=== PATIENT | female | born 1975 | race Caucasian/White ===

== ENCOUNTER → 2019-12-12 16:00 | Outpatient (BNVA) | payer BC, OTHER, SELFPAY | PROVIDERS: Family Provider Family Medicine; Visit Provider Nurse Practitioner Women's Health | DX: N93.9 Abnormal uterine and vaginal bleeding, unspecified (principal) | CPT/HCPCS: 84146; 84439; 84443; 84702; 85025 ==

== ENCOUNTER → 2019-12-13 13:09 | Outpatient (BNVA) | payer BC, OTHER, SELFPAY | PROVIDERS: Family Provider Family Medicine; Visit Provider Nurse Practitioner Women's Health | DX: N93.9 Abnormal uterine and vaginal bleeding, unspecified (principal) | CPT/HCPCS: 76830; 88305 ==

== ENCOUNTER 2020-06-20 18:52 | Emergency (ER) | payer BC, OTHER, SELFPAY ==
[2020-06-20 19:33] VITALS: BP 152/88; PULSE 90; RESP 18; TEMP 37.2; O2SAT 96; BMI 41.1
--- NOTE | 2020-06-20 19:53 | ED_ITS ---
HPI - Abdominal Pain General: Chief Complaint: Nausea/Vomiting/Diarrhea Stated Complaint: heartburn x3 days Time Seen by Provider: 06/20/20 19:52 Source: patient Mode of arrival: ambulatory Limitations: no limitations History of Present Illness: HPI narrative: 44-year-old female comes in today with complaints of worsening heartburn for the last 3 days. Patient routinely uses Pepcid 20 mg twice a day without much relief. Patient has also added some Pepto-Bismol which has added minimal relief. Patient does have a history of an ulcer. Patient states noticing a small amount of blood in her emesis this morning. Patient denies any changes in her bowels except for due to the Pepto- Bismol which has changed in nature but to black. She reports that when she is does not take the Pepto-Bismol it returns to normal color. Patient comes in just to make sure that it is not her heart. Patient appears well. Patient appears no acute distress. MD elicited complaint: abdominal pain Pertinent past history: gastritis (ulcer) Onset (ago): day(s) Pain Consistency: intermittent Location: Epigastric Quality: sharp Review of Systems General: Reports: 10 or more systems reviewed and unremarkable except in HPI and below GI: Reports: abdominal pain PFSH ED PFSH: Medical History (Updated 06/20/20 @ 21:08 by YUE Montiel) No pertinent past medical history neghx: htn,dm,thyroid,dvt/pe PCOS (polycystic ovarian syndrome) Surgical History Hx of section 2000 2011 Family History Grandmother Colon cancer, Onset Age: 70 Maternal Heart disease Maternal Father Diabetes Heart disease Hypertension Mother Diabetes Hypertension Brother Hypertension Denies family history of Ovarian cancer Clotting disorder Hypercholesteremia Breast cancer Bleeding disorder Uterine cancer Thyroid disease Stroke Social History Additional social history: - Tobacco use: smokes 0.25 pack per day Alcohol use: Never Drug use: Never Physical Exam Const: COMMON NORMALS: no acute distress and patient oriented x3 GENERAL A PPEARANCE: cooperative HENMT: COMMON NORMALS: normocephalic and Normal external nose present HEAD & SCALP: normal to inspection and normocephalic NOSE: Normal external nose present MOUTH: Normal oral and palatal mucosa present THROAT: posterior oropharynx normal Eye: GENERAL EYE: appearance normal, both eyes and all related structures Neck/C-Spine: COMMON NORMALS: full ROM Lymph: LYMPHATIC: no lymphadenopathy noted Chest: COMMONS NORMALS: normal inspection of the chest Resp: COMMON NORMALS: normal respiratory effort EFFORT & INSPECTION: Yes able to speak in complete sentences Cardio: COMMON NORMALS: regular rate and regular rhythm RATE: regular rate RHYTHM: regular rhythm GI: AUSCULTATION: Yes normoactive bowel sounds PALPATION: Yes Tenderness to palpation present (GI) (epigastric) PERCUSSION: normal to percussion : COMMON NORMALS: Yes no CVA tenderness BLADDER/KIDNEY EXAM: Yes no CVA tenderness Back/Pelvis: COMMON NORMALS: no CVA tenderness and thoracic and lumbar spine normal to inspection Extremity: COMMON NORMALS: normal to inspection Neuro: COMMON NORMALS: patient oriented x3 and moves all extremities Psych: COMMON NORMALS: mental status grossly normal and cooperative Skin: COMMON NORMALS: no rashes or lesions noted GENERAL SKIN EXAM: no rashes or lesions noted Course Vital Signs: Vital signs: Vital Signs Temperature 99.0 F 06/20/20 19:33 Pulse Rate 90 06/20/20 19:33 Respiratory Rate 18 06/20/20 19:33 Blood Pressure 152/88 06/20/20 19:33 Pulse Oximetry 96 06/20/20 19:33 MDM - Abdominal Pain MDM Narrative: Medical decision making narrative: Patient comes in today with complaints of epigastric abdominal pain. Patient reports exacerbation of symptoms for the last 3-4 days. Patient has been using famotidine and Pepto- Bismol with minimal to no relief. On exam patient has some mid epigastric tenderness. Respirations were even lungs were clear to auscultation. Vital signs were normal. Differential diagnosis includes but not limited to hiatal hernia, GERD, gastritis, ACS. EKG was unremarkable. CBC noted some mild anemia and mild leukocytosis. CMP was unremarkable. Troponin and lipase were normal. Patient was medicated with a GI cocktail and 40 mg of pantoprazole IV. Patient had significant improvement in symptoms. I believe patient probably has gastritis and will benefit from Protonix for the next 2 weeks. Patient was written for Protonix with recommendations for follow-up with primary care in 2 weeks. Patient reported understanding of care plan and need for follow-up or return to the ER. Lab Data: Labs: Lab Results 06/20/20 06/20/20 06/20/20 Range/Units 20:27 20:27 20:27 WBC 11.0 H (4.0-10.0) 10^3/ uL RBC 5.12 (4.1-5.3) 10^6/u L Hgb 11.3 L (11.5-15.3) g/dL Hct 36.8 L (37.0-47.0) % MCV 71.9 L (81-99) fL MCH 22.1 L (28.0-34.0) pg MCHC 30.7 (30.0-36.0) g/dL RDW 18.0 H (12.1-15.1) % Plt Count 328 (130-400) 10^3/c mm MPV 10.1 (7.4-10.4) fL Neut % (Auto) 72.7 % Lymph % (Auto) 19.1 % [place] % (Auto) 5.5 % Eos % (Auto) 2.1 % Baso % (Auto) 0.3 % Neut # (Auto) 8.01 H (1.8-7.7) 10^3/u L Lymph # (Auto) 2.1 (0.8-4.8) 10^3/u L [place] # (Auto) 0.6 (0.2-0.9) 10^3/u L Eos # (Auto) 0.2 (0.0-0.8) 10^3/u L Baso # (Auto) 0.0 (0.0-0.1) 10^3/u L Nucleated RBC % (a uto) 0 % Nucleated RBCs # 0.0 /100WBC Sodium 135 L (136-145) mmol/L Potassium 4.1 (3.5-5.1) mmol/L Chloride 104 (98-107) mmol/L Carbon Dioxide 21 L (22-29) mmol/L Anion Gap 14.1 (5-19) BUN 12 (6-20) mg/dL Creatinine 0.7 (0.5-0.9) mg/dL GFR Calculation 91.3 (90-130) mL/min Glucose 85 (65-115) mg/dL Calculated Osmolal ity 279 L (285-295) mOsm/k g Calcium 8.2 L (8.5-10.5) mg/dL Total Bilirubin 0.4 (0.15-1.2) mg/dL AST 13 (0-32) U/L ALT 13 (0-33) U/L Alkaline Phosphata se 93 (35-105) IU/L Troponin T Gen 5 n g/L 6 (0-10) ng/L Total Protein 6.3 L (6.6-8.7) g/dL Albumin 3.9 (3.5-5.2) g/dL Globulin 2.4 (1.3-4.6) g/dL Lipase 21 (13-60) U/L Discharge Plan Discharge Patient Disposition: Home Clinical Impression: Gastritis Qualifiers: Gastritis type: other gastritis Chronicity: unspecified Gastritis bleeding: presence of bleeding unspecified Qualified Code(s): K29.60 - Other gastritis without bleeding Condition: Stable Prescriptions: New pantoprazole 40 mg tablet,delayed release (DR/EC) 40 mg PO DAILY Qty: 30 RF: 0 No Action Tylenol 325 mg Tablet 325 - 650 mg PO Q6H PRN (Reason: Pain) RF: 0 Pepcid 40 mg tablet 20 mg PO BID RF: 0 ibuprofen 200 mg Tablet 200 - 400 mg PO Q6H PRN (Reason: Pain) RF: 0 Pepto-Bismol See Rx Instructions .ROUTE .COMPLEX RF: 0 norethindrone acetate 5 mg tablet 5 mg PO DAILY@1600 RF: 0 Discharge Orders: Discharge ED (Routine); Ordered 06/20/20 Ordered By: José Antonio Carrasco Referrals: Quan Xiong MD [Primary Care Provider] - Discharge Diet: Usual diet Discharge Activity: Increase activity as tolerated Patient Instructions: Gastritis (ED), Diet for Ulcers and Gastritis (ED), Opioid Safety Activity Restrictions/Additional Instructions: Take Protonix once daily 30 minutes before your first meal of the day. Drink plenty of water. Avoid carbonated beverages, acidic foods, or other foods that may aggravate your stomach. Take the medication for the next 2 weeks and then reassess. If the pain gets worse, you start running a high fever, or notice a large amount of blood in the stool or vomitus you need to be reevaluated. Follow-up with primary care in 2 weeks for recheck and consideration for further evaluation with endoscopy. Return to the emergency department for new concerns. Coding Level of Care Code ED Sous Chef Kitchen Manager for Chg Fwd Exam Comprehensive
[2020-06-20] MEDS: lidocaine 2% viscous 15 ML, aluminum-mag hydrox-simethicon 30 ML, sucralfate oral liq 1 GM PO (20:25)
[2020-06-20 20:35] LABS: Basophils % 0.3 %; Eosinophils # 0.2 10^3/uL (0.0-0.8); Eosinophils % 2.1 %; Hematocrit 36.8 % (37.0-47.0); Hemoglobin 11.3 g/dL (11.5-15.3); Lymphocytes # 2.1 10^3/uL (0.8-4.8); Lymphocytes % 19.1 %; Mean Corpuscular HGB Conc 30.7 g/dL (30.0-36.0); Mean Corpuscular Hemoglobin 22.1 pg (28.0-34.0); Mean Corpuscular Volume 71.9 fL (81-99); Mean Platelet Volume 10.1 fL (7.4-10.4); Monocytes # 0.6 10^3/uL (0.2-0.9); Monocytes % 5.5 %; Neutrophils # 8.01 10^3/uL (1.8-7.7); Neutrophils % 72.7 %; Nucleated Red Blood Cells % 0 %; Platelet Count 328 10^3/cmm (130-400); Red Blood Count 5.12 10^6/uL (4.1-5.3)
[2020-06-20] MEDS: pantoprazole 40 mg SDV IVP (20:46)
[2020-06-20 20:53] LABS: Alanine Aminotransferase 13 U/L (0-33); Albumin Level 3.9 g/dL (3.5-5.2); Alkaline Phosphatase 93 IU/L (35-105); Anion Gap 14.1 (5-19); Aspartate Amino Transferase 13 U/L (0-32); Blood Urea Nitrogen 12 mg/dL (6-20); Calcium 8.2 mg/dL (8.5-10.5); Carbon Dioxide 21 mmol/L (22-29); Chloride 104 mmol/L (98-107); Globulin 2.4 g/dL (1.3-4.6); Glomerular Filtration Rate 91.3 mL/min (90-130); Glucose 85 mg/dL (65-115); Lipase 21 U/L (13-60); Osmolality Calculated 279 mOsm/kg (285-295); Potassium 4.1 mmol/L (3.5-5.1); Sodium 135 mmol/L (136-145); Total Bilirubin 0.4 mg/dL (0.15-1.2); Total Protein 6.3 g/dL (6.6-8.7)
[2020-06-20 20:55] LABS: Troponin T (5th) Once 6 ng/L (0-10)
[2020-06-20 21:27] VITALS: BP 147/85; PULSE 87; RESP 19; O2SAT 99
== END 2020-06-20 21:27 | disposition home or self-care (01) ==
PROVIDERS: Emergency Provider Nurse Practitioner Family; PCP Family Medicine
DX: K29.60 Other gastritis without bleeding (principal); F17.210 Nicotine dependence, cigarettes, uncomplicated
CPT/HCPCS: 80053; 83690; 84484; 85025; 96374; 99283; C9113

== ENCOUNTER 2020-10-20 13:46 | Outpatient (CLI) | payer SELFPAY ==
--- NOTE | 2020-10-20 14:03 | XRR_ITS ---
PROCEDURE INFORMATION: Exam: XR Chest Exam date and time: 10/20/2020 2:03 PM Age: 45 years old Clinical indication: Shortness of breath; Prior surgery; Surgery type: C section; Patient HX: Tested positive for covid on , lingering symptoms of SOB, cough, chest discomfort; Additional info: Atypical chest discomfort/dyspnea/post covid 19 TECHNIQUE: Imaging protocol: XR of the chest. Views: 2 views. Total images: 2 COMPARISON: No relevant prior studies available. FINDINGS: Lungs: Unremarkable. No consolidation. Pleural spaces: Unremarkable. No pleural effusion. No pneumothorax. Heart/Mediastinum: Unremarkable. No cardiomegaly. Bones/joints: Unremarkable. XR/XR chest 2V* [id number] IMPRESSION: No acute findings.
== END 2020-10-20 13:47 | disposition home or self-care (01) ==
PROVIDERS: PCP Nurse Practitioner Family; Visit Provider Nurse Practitioner Family
DX: R07.89 Other chest pain (principal); R06.00 Dyspnea, unspecified; U07.1 COVID-19
CPT/HCPCS: 71046

== ENCOUNTER 2023-03-13 12:57 | Emergency (ER) | payer SELFPAY ==
--- NOTE | 2023-03-13 12:58 | XRR_ITS ---
PROCEDURE INFORMATION: Exam: XR Chest Exam date and time: 03/13/2023 1:14 PM Age: 47 years old Clinical indication: Pain; Chest pressure; Additional info: Cp TECHNIQUE: Imaging protocol: Radiologic exam of the chest. Views: 1 view. COMPARISON: CR XR chest 2V* [id number] 10/20/2020 2:10 PM FINDINGS: Lungs: Unremarkable. No consolidation. Pleural spaces: Unremarkable. No pleural effusion. No pneumothorax. Heart/Mediastinum: Unremarkable. No cardiomegaly. Bones/joints: Unremarkable. XR/XR chest 1V portable [id number] IMPRESSION: No acute findings.
[2023-03-13 12:59] VITALS: BP 137/88; PULSE 91; RESP 18; TEMP 36.8; O2SAT 96; BMI 44.6
--- NOTE | 2023-03-13 12:59 | ECG_ITS ---
[facility] Test Date: 2023-03-13 Pat Name: Luan Campuzano Department: Room: Gender: Female Hospitality Intern: : 1975 Requested By: Jaylon Torres Order Number: [id number] Jacqueline MD: Neo Hay M.D. Measurements Intervals [place] Rate: 78 P: 38 MA: 143 QRS: 24 QRSD: 84 T: 35 QT: 348 QTc: 399 Interpretive Statements SINUS RHYTHM No previous ECG available for comparison Electronically Signed On 03-13-2023 16:23:00 TEACHER INSTRUMENTAL by Noe Hay M.D. [id number]
[2023-03-13 13:27] VITALS: O2SAT 96
--- NOTE | 2023-03-13 13:30 | ED_ITS ---
HPI - COVID 2 General: Chief Complaint: COVID symptoms Stated Complaint: CP, apolinar pacheco N/V, Time Seen by Provider: 03/13/23 13:07 History of Present Illness: 47-year-old female Padilla Campuzano comes i n today for nausea and vomiting starting last night. Patient also has a cough with congestion. Patient reports cough been on and off for the last 2 months. Patient came in tonight for the nausea vomiting and diarrhea. Patient denies any blood in the vomitus or stools. Patient denies any abdominal surgeries. Patient is a tobacco smoker. Patient has tried Zofran with no relief of nausea. Patient reports exposure to COVID at the [place] [facility] that she works. COVID 19 common symptoms: positive nausea, vomiting and diarrhea COVID Results: 2 SARS-CoV-2 Antigen (Rapid) negative (Negative) 03/13/23 14:13 Review of Systems 2 General: Reports: 10 or more systems reviewed and unremarkable except in HPI and below GI: Reports: nausea, vomiting and diarrhea PFSH ED 2 PFSH: Medical History Chronic GERD COVID (~09/2020) No pertinent past medical history neghx: htn,dm,thyroid,dvt/pe PCOS (polycystic ovarian syndrome) Surgical History Hx of section 2000 2011 Family History Grandmother Colon cancer Maternal--dx age 70's Heart disease Maternal Father Diabetes Heart disease Hypertension Mother Diabetes Hypertension Brother Hypertension Denies family history of Ovarian cancer Hypercholesteremia Breast cancer Uterine cancer Thyroid disease Stroke Physical Exam 2 Const: COMMON NORMALS: alert HENMT: COMMON NORMALS: normocephalic HEAD & SCALP: normocephalic MOUTH: Normal oral and palatal mucosa present THROAT: posterior oropharynx normal Neck/C-Spine: COMMON NORMALS: full ROM and no meningeal signs Resp: COMMON NORMALS: normal respiratory effort AUSCULTATION: rhonchi Cardio: COMMON NORMALS: regular rate and regular rhythm RATE: regular rate RHYTHM: regular rhythm GI: COMMON NORMALS: Soft to palpation and non-tender PALPATION: Yes Soft to palpation : COMMON NORMALS: Yes no CVA tenderness BLADDER/KIDNEY EXAM: Yes no CVA tenderness Back/Pelvis: COMMON NORMALS: no CVA tenderness and thoracic and lumbar spine normal to inspection Extremity: COMMON NORMALS: no pedal edema Neuro: SENSORIUM/ORIENTATION: Yes alert MENINGEAL SIGNS: Yes no meningeal signs Skin: COMMON NORMALS: turgor normal GENERAL SKIN EXAM: turgor normal Course 2 Vital Signs: Vital signs: Vital Signs Temperature 98.2 F 03/13/23 12:59 Pulse Rate 91 03/13/23 12:59 Respiratory Rate 18 03/13/23 12:59 Blood Pressure 137/88 03/13/23 12:59 Pulse Oximetry 96 03/13/23 13:27 Oxygen Delivery Me thod Room Air 03/13/23 13:27 MDM - COVID Medical Decision Making 47-year-old female comes in with nausea vomiting and diarrhea starting last night. Patient is unable to hold down fluids. Patient reports exposure to COVID at work. On exam patient appears mildly unwell but not toxic. Lungs are coarse with rhonchi. Bowel sounds are present. Abdomen soft nontender. No edema is noted in the extremities. No CVA tenderness. Vital signs are normal. Differential diagnosis includes viral syndrome, influenza, COVID, pneumonia, dehydration, gastroenteritis. CBC noted some mild elevation and white blood cells at 16,000, CMP was unremarkable. Patient was negative for COVID and influenza. Chest x-ray showed no acute findings. Abdominal CT noted no acute findings. Troponin was unchanged at 2 hours. Believe the patient probably has a bout of a viral gastroenteritis. Patient was medicated with IV fluids and Reglan in the ER with improvement of symptoms. Patient be continued on Reglan at home. Patient already has been using Zofran at home. Patient reported understanding of care plan need for follow-up or return to the ER. Lab Data 03/13/23 13:12 03/13/23 13:12 Radiology Impressions Chest X-Ray 03/13/23 12:58 IMPRESSION: No acute findings. Abdomen/Pelvis CT 03/13/23 13:55 IMPRESSION: No acute findings. Laboratory Results WBC 16.65 10^3/uL (3.29-11.43) H 03/13/23 13:12 RBC 5.58 10^6/uL (3.85-5.65) 03/13/23 13:12 Hgb 15.10 g/dL (11.27-16.99) 03/13/23 13:12 Hct 46.5 % (36-47) 03/13/23 13:12 MCV 83.3 fl (85-98) L 03/13/23 13:12 MCH 27.1 pg (27-33) 03/13/23 13:12 MCHC 32.5 g/dL (30-55) 03/13/23 13:12 RDW 15.4 % (12.1-15.1) H 03/13/23 13:12 Plt Count 349 10^3/cmm (157-399) 03/13/23 13:12 MPV 10.1 fL (7.4-10.4) 03/13/23 13:12 Neut % (Auto) 87.7 % 03/13/23 13:12 Lymph % (Auto) 7.4 % 03/13/23 13:12 [place] % (Auto) 3.2 % 03/13/23 13:12 Eos % (Auto) 1.0 % 03/13/23 13:12 Baso % (Auto) 0.2 % 03/13/23 13:12 Neut # (Auto) 14.59 10^3/uL (1.8-7.7) H 03/13/23 13:12 Lymph # (Auto) 1.2 10^3/uL (0.8-4.8) 03/13/23 13:12 [place] # (Auto) 0.5 10^3/uL (0.2-0.9) 03/13/23 13:12 Eos # (Auto) 0.2 10^3/uL (0.0-0.8) 03/13/23 13:12 Baso # (Auto) 0.0 10^3/uL (0.0-0.1) 03/13/23 13:12 Nucleated RBC % (auto) 0 % 03/13/23 13:12 Nucleated RBCs # 0.0 /100WBC 03/13/23 13:12 Sodium 137 mmol/L (136-145) 03/13/23 13:12 Potassium 4.5 mmol/L (3.5-5.1) 03/13/23 13:12 Chloride 107 mmol/L (98-107) 03/13/23 13:12 Carbon Dioxide 21 mmol/L (22-29) L 03/13/23 13:12 Anion Gap 13.5 (5-19) 03/13/23 13:12 BUN 11 mg/dL (6-20) 03/13/23 13:12 Creatinine 0.6 mg/dL (0.5-0.9) 03/13/23 13:12 GFR Calculation 107.6 mL/min (90-130) 03/13/23 13:12 Glucose 112 mg/dL (65-115) 03/13/23 13:12 Calculated Osmolality 284 mOsm/kg (285-295) L 03/13/23 13:12 Calcium 9.2 mg/dL (8.5-10.5) 03/13/23 13:12 Total Bilirubin 0.5 mg/dL (0.15-1.2) 03/13/23 13:12 AST 14 U/L (0-32) 03/13/23 13:12 ALT 15 U/L (0-33) 03/13/23 13:12 Alkaline Phosphatase 112 U/L (35-105) H 03/13/23 13:12 Troponin T Baseline < 6 ng/L (0-10) 03/13/23 13:12 Total Protein 6.8 g/dL (6.6-8.7) 03/13/23 13:12 Albumin 3.8 g/dL (3.5-5.2) 03/13/23 13:12 Globulin 3.0 g/dL (1.3-4.6) 03/13/23 13:12 Lipase 25 U/L (13-60) 03/13/23 13:12 Urine Color Yellow (Yellow) 03/13/23 13:27 Urine Appearance Sl hazy (CLEAR) A 03/13/23 13:27 Urine pH 5 (5-7) 03/13/23 13:27 Ur Specific [place] 1.020 (1.005-1.030) 03/13/23 13:27 Urine Protein Neg (Negative) 03/13/23 13:27 Urine Glucose (UA) Norm (Normal) 03/13/23 13:27 Urine Ketones Negative (Negative) 03/13/23 13:27 Urine Blood 2+ (Negative) H 03/13/23 13:27 Urine Nitrate Negative (Negative) 03/13/23 13:27 Urine Bilirubin 1+ (Negative) H 03/13/23 13:27 Urine Urobilinogen Norm mg/dL (Negative) 03/13/23 13:27 Ur Leukocyte Esterase Negative (Negative) 03/13/23 13:27 Urine RBC 5-10 /hpf (0-2) H 03/13/23 13:27 Urine WBC 0-4 /hpf (0-5) H 03/13/23 13:27 Ur Squamous Epith Cells 10-15 /hpf (0-5) H 03/13/23 13:27 Amorphous Sediment Not Reportable 03/13/23 13:27 Urine Bacteria 2+ /hpf (NONE) H 03/13/23 13:27 Influenza Type A Ag negative (Negative) 03/13/23 14:13 Influenza Type B Ag negative (Negative) 03/13/23 14:13 SARS-CoV-2 Ag (Rapid) negative (Negative) 03/13/23 14:13 2 SARS-CoV-2 Antigen (Rapid) negative (Negative) 03/13/23 14:13 All radiology interpretation(s) finalized by discharge EKG Data EKG 1: I personally reviewed and interpreted this EKG as follows: EKG interpretation date: 03/13/23 EKG interpretation time: 13:32 Prior EKG tracings: not available for review Interpretation: EKG shows a sinus rhythm with a regular rate at a [address] elevation or ectopy is noted. Mild artifact is noted. No prior exam was available for comparison. Computer generated interpretation: Sinus rhythm, normal EKG, unconfirmed report. EKG 2: I personally reviewed and interpreted this EKG as follows: EKG interpretation date: 03/13/23 EKG interpretation time: 15:22 Prior EKG tracings: available for review Interpretation: EKG shows a sinus rhythm with a regular rate at [address] elevation or ectopy is noted. No changes are noted from prior exam 2 hours ago. Computer generated interpretation: Sinus rhythm, normal EKG, unconfirmed report. Discharge Plan Discharge Patient Disposition: Home Clinical Impression: Gastroenteritis Condition: Stable Prescriptions: New metoclopramide HCl 10 mg tablet 10 mg PO Q6H PRN (Reason: nausea and vomiting) Qty: 14 0RF No Action esomeprazole magnesium [Nexium] 20 mg capsule,delayed release(DR/EC) 20 mg PO DAILY norethindrone acetate 5 mg tablet 5 mg PO DAILY Qty: 90 3RF Tylenol 325 mg Tablet 325 - 650 mg PO Q6H PRN (Reason: Pain) ibuprofen 200 mg Tablet 200 - 400 mg PO Q6H PRN (Reason: Pain) Discharge Orders: Discharge ED (Routine); Ordered 03/13/23 Ordered By: José Antonio Carrasco Referrals: Roberta Blackman FNP [Primary Care Provider] - Discharge Diet: Usual diet Discharge Activity: Increase activity as tolerated Patient Instructions: Gastroenteritis (ED) Activity Restrictions/Additional Instructions: Home and rest. Drink frequent sips of fluids. Use Reglan to help with nausea. Use Zofran for further nausea control. Use [id number] Imodium as needed for diarrhea. Most often gastroenteritis will run its course within 3 to 5 days. Nausea and vomiting usually resolves in 1 to 2 days. Diarrhea may persist up to 3 to 5 days. Follow-up with primary care as needed. Return to ED for worsening symptoms such as localization of pain, blood in vomit or stool, or fever greater than 100.4. Coding Level of Care Code ED Tire Mechanic for Kirit Funes
[2023-03-13 13:34] LABS: Basophils % 0.2 %; Eosinophils # 0.2 10^3/uL (0.0-0.8); Hematocrit 46.5 % (36-47); Lymphocytes # 1.2 10^3/uL (0.8-4.8); Lymphocytes % 7.4 %; Mean Corpuscular HGB Conc 32.5 g/dL (30-55); Mean Corpuscular Hemoglobin 27.1 pg (27-33); Mean Corpuscular Volume 83.3 fl (85-98); Mean Platelet Volume 10.1 fL (7.4-10.4); Monocytes # 0.5 10^3/uL (0.2-0.9); Monocytes % 3.2 %; Neutrophils # 14.59 10^3/uL (1.8-7.7); Neutrophils % 87.7 %; Nucleated Red Blood Cells % 0 %; Platelet Count 349 10^3/cmm (157-399); Red Blood Count 5.58 10^6/uL (3.85-5.65); Red Cell Distribution Width 15.4 % (12.1-15.1); White Blood Count 16.65 10^3/uL (3.29-11.43)
[2023-03-13 13:44] LABS: Alanine Aminotransferase 15 U/L (0-33); Albumin Level 3.8 g/dL (3.5-5.2); Alkaline Phosphatase 112 U/L (35-105); Anion Gap 13.5 (5-19); Aspartate Amino Transferase 14 U/L (0-32); Blood Urea Nitrogen 11 mg/dL (6-20); Calcium 9.2 mg/dL (8.5-10.5); Carbon Dioxide 21 mmol/L (22-29); Chloride 107 mmol/L (98-107); Glomerular Filtration Rate 107.6 mL/min (90-130); Glucose 112 mg/dL (65-115); Lipase 25 U/L (13-60); Osmolality Calculated 284 mOsm/kg (285-295); Potassium 4.5 mmol/L (3.5-5.1); Sodium 137 mmol/L (136-145); Total Bilirubin 0.5 mg/dL (0.15-1.2); Total Protein 6.8 g/dL (6.6-8.7)
[2023-03-13] MEDS: sodium chloride 0.9% 1,000 ML 999 ML IV (13:44)
[2023-03-13] MEDS: metoclopramide 5 mg/mL SDV 2 mL 10 MG IVP (13:44)
[2023-03-13 13:45] LABS: Glucose Urine UA Norm (Normal); Ketones Urine Negative (Negative); Protein Urine Neg (Negative); Urine Appearance SL Hazy (CLEAR); Urine Color Yellow (Yellow); pH Urine 5 (5-7)
[2023-03-13 13:46] LABS: Add Urine Culture? No; Add Urine Microscopic? YES; Bacteria Urine 2+ /hpf; Bilirubin Urine 1+ (Negative); Blood Urine 2+ (Negative); Leukocyte Esterase Urine Negative (Negative); Nitrate Urine Negative (Negative); Urobilinogen Urine Norm (Negative); WBC Urine 0-4 /hpf (0-5)
[2023-03-13 13:52] LABS: Troponin(5th) Baseline < 6 ng/L (0-10)
--- NOTE | 2023-03-13 13:55 | CTR_ITS ---
PROCEDURE INFORMATION: Exam: CT Abdomen And Pelvis With Contrast Exam date and time: 03/13/2023 2:19 PM Age: 47 years old Clinical indication: Nausea and vomiting; Abdominal pain; Localized; Lower; Prior surgery; Surgery date: 6+ months; Surgery type: C section; TECHNIQUE: Imaging protocol: Computed tomography of the abdomen and pelvis with contrast. Radiation optimization: All CT scans at this facility use at least one of these dose optimization techniques: automated exposure control; mA and/or kV adjustment per patient size (includes targeted exams where dose is matched to clinical indication); or iterative reconstruction. Contrast material: OMNI 350; Contrast volume: 100 ml; Contrast route: INTRAVENOUS (IV); COMPARISON: US transvaginal [id number] 12/13/2019 1:12 PM RADIATION DOSE METRICS: Total DLP (mGy-cm): 1225.31 FINDINGS: Liver: Normal. No mass. Gallbladder and bile ducts: Normal. No calcified stones. No ductal dilation. Pancreas: Normal. No ductal dilation. Spleen: Normal. No splenomegaly. Adrenal glands: Normal. No mass. Kidneys and ureters: 4 mm nonobstructing left renal calculus. Stomach and bowel: Unremarkable. No obstruction. No mucosal thickening. Appendix: No evidence of appendicitis. Intraperitoneal space: Unremarkable. No free air. No significant fluid collection. Vasculature: Unremarkable. No abdominal aortic aneurysm. Lymph nodes: Unremarkable. No enlarged lymph nodes. Urinary bladder: Unremarkable as visualized. Reproductive: Unremarkable as visualized. Bones/joints: Unremarkable. No acute fracture. Soft tissues: Unremarkable. CT/CT abdomen pelvis w con* [id number] IMPRESSION: No acute findings.
[2023-03-13] MEDS: iohexol 350 mg/mL 500 mL Btl (per mL) IV (14:26)
[2023-03-13 14:36] LABS: SARS Covid-2 Antigen negative (Negative)
[2023-03-13 14:59] LABS: Influenza A by IFA negative (Negative); Influenza B by IFA negative (Negative)
--- NOTE | 2023-03-13 14:59 | ECG_ITS ---
[facility] Test Date: 2023-03-13 Pat Name: Luan Campuzano Department: Room: Gender: Female Curriculum Director: : 1975 Requested By: Jaylon Torres Order Number: [id number] Jacqueline MD: Noe Hay M.D. Measurements Intervals [place] Rate: 82 P: 38 AR: 148 QRS: 26 QRSD: 94 T: 38 QT: 357 QTc: 419 Interpretive Statements SINUS RHYTHM Compared to ECG 03/13/2023 13:31:00 No significant changes Electronically Signed On 03-13-2023 16:27:40 BLEACHING SUPERVISOR by Noe Hay M.D. [id number]
[2023-03-13 15:48] LABS: Troponin 5 2HR Delta 0.00001 ABS# (0-10)
== END 2023-03-13 15:59 | disposition home or self-care (01) ==
PROVIDERS: Emergency Medicine; Emergency Provider Nurse Practitioner Family; PCP Nurse Practitioner Family
DX: K52.9 Noninfective gastroenteritis and colitis, unspecified (principal); Z11.52 Encounter for screening for COVID-19
CPT/HCPCS: 36415; 71045; 74177; 80053; 81001; 83690; 84484; 85025; 87426; 87804; 93005; 96374; 99285; J2765; J7030; Q9967

== ENCOUNTER 2023-12-07 10:45 | Outpatient (CLI) | payer OTHER, SELFPAY ==
--- NOTE | 2023-12-07 10:40 | MM_ITS ---
WS: [id number] BILATERAL SCREENING DIGITAL TOMOSYNTHESIS MAMMOGRAM WITH CAD HISTORY: SCREENING COMPARISON: 06/05/2010, 08/20/2008 Bilateral CC and MLO views with tomosynthesis and synthetic mammography submitted. Computer aided det ection analyzed. Breast composition: The breasts are almost entirely fatty. No suspicious masses, microcalcifications or architectural distortion. MM/MM scr BI tomosynthesis [id number] IMPRESSION: BI-RADS: 1 - Negative. FOLLOW UP: 1 Year Follow-up
== END 2023-12-07 10:46 | disposition home or self-care (01) ==
LOC: MOBLMAM 10:47
PROVIDERS: PCP Nurse Practitioner Women's Health; Visit Provider Nurse Practitioner Women's Health
DX: Z12.31 Encounter for screening mammogram for malignant neoplasm of breast (principal); R92.313 Mammographic fatty tissue density, bilateral breasts
CPT/HCPCS: 77063; 77067

== ENCOUNTER 2024-05-17 06:00 | Outpatient (CLI) | payer OTHER, SELFPAY | END 2024-05-17 06:01 | disposition home or self-care (01) | LOC: LAB 05-18 08:17 | PROVIDERS: PCP Nurse Practitioner Women's Health; Visit Provider Nurse Practitioner Women's Health | DX: Z01.419 Encounter for gynecological examination (general) (routine) without abnormal findings (principal) | CPT/HCPCS: 87624 ==

== ENCOUNTER → 2024-05-30 08:03 | Outpatient (BNVA) | payer OTHER, SELFPAY | PROVIDERS: PCP Nurse Practitioner Women's Health; Visit Provider Nurse Practitioner Women's Health | DX: N92.5 Other specified irregular menstruation (principal) | CPT/HCPCS: 76830 ==